=== PATIENT | male | born 1985 | race Caucasian/White ===

== ENCOUNTER → 2016-09-04 07:27 | Day surgery (SDC) | payer BC ==
--- NOTE | 2016-08-28 09:22 | HP ---
ADMITTING HISTORY AND PHYSICAL: DATE OF ADMISSION: 09/04/16 AGE: 31 years, male. 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 PLANNED PROCEDURE: Right radical orchiectomy. SURGEON: Dr. Phipps. HISTORY OF PRESENT ILLNESS: Tip Dorman is a 31-year-old gentleman who had originally noticed enlargement and firmness in the right testicle about 2 months ago. He had [facility] to [facility] and had been treated initially with Cipro and then with Zithromax. There is no history of undescended testicles or testicular trauma. I examined him on and to me, the examination was suspicious for a right testicular neoplasm and an ultrasound was obtained which confirmed large solid neoplasm occupying most of the inside of the right testicle. His serum markers specifically HCG and alpha fetoprotein were normal and he is now being brought in for right radical orchiectomy after a thorough discussion of the diagnosis, procedure, and risks. PAST MEDICAL HISTORY: Unremarkable. PAST SURGICAL HISTORY: Negative. MEDICATIONS ON ADMISSION: None. ALLERGIES: No known drug allergies. SMOKING HISTORY: He is a nonsmoker. PHYSICAL EXAMINATION GENERAL: A pleasant, healthy-appearing young gentleman. VITAL SIGNS: Blood pressure is 120/80, pulse 80 per minute, temperature 97.3, oxygen saturation 96% on room air. LUNGS: Clear bilaterally. CARDIOVASCULAR EXAM: Regular rate and rhythm. S1, S2. ABDOMEN: Soft without any palpable masses. Testicles are descended bilaterally. The left testicle is normal (about 15 to 20 cc in volume) without any masses. On the right side, the right testicle is involved with a firm mass occupying the upper pole and midpole of the testicle on examination and highly suspicious for testicular tumor. An ultrasound was obtained, which revealed hypoechoic irregular mass occupying 90% of the volume of the right testicle with increased intratesticular blood flow. The left testicle was normal on sonography. IMPRESSION: A 31-year-old gentleman with what appears to be a right testicular tumor. Plan is for right radical orchiectomy. I discussed the procedure and possible risks with Tip and the implications and the need for further followup with Medical Oncology and CT scans after the orchiectomy. [id number]/[facility] #: [id number] [facility]
[~2016-09-04 07:27] MED LIST: Buffered Lidocaine 1% SYR 3ML* 3 ML/SYR SYRINGE INTRADERM ONE; Buffered Lidocaine 1% SYR 3ML* 3 ML/SYR SYRINGE ONE; Bupivacaine 0.5% SDV PF* 30 ML VIAL ONE; Collodion (Flexible)* 120 ML BTL ONE; Dexamethasone IV* 4 MG/ML 1 ML (4 MG) ONE; EPHEDrine (Pressors)* 50 MG/ML VIAL ONE; Glycopyrrolate IV* 0.2 MG/ML 1 ML VIAL ONE; Ketorolac INJ* 30 MG/ML 1 ML VIAL ONE; Lidocaine 2% MPF* 2 ML VIAL ONE; Midazolam* 1 MG/ML 2 ML VIAL (2 MG) ONE; Ondansetron INJ* 2 MG/ML VIAL IV PRN; Propofol* 10 MG/ML 20 ML BTL IV PUSH ONE; Sodium Citrate/Citric Acid* 15 ML UDC ONE; Sodium Citrate/Citric Acid* 15 ML UDC PO ONE; cefTRIAXone(*) 2 GM ADDV.VIAL IVPB ONE; fentaNYL* 50 MCG/ML 2 ML VIAL (100 MCG VIAL) IV PRN; fentaNYL* 50 MCG/ML 2 ML VIAL (100 MCG VIAL) ONE; oxyCODONE/Acetamin 5/325 MG* TAB ONE
[2016-09-04 11:16] VITALS: BP 121/58
--- NOTE | 2016-09-05 01:35 | OP ---
DATE OF OPERATION: 09/04/16 - [facility] DATE OF : [birth year] - AGE: 31 years, male. SURGEON: Eliot Phipps MD. VAULT MANAGER: Kilo Manuel MD ANESTHESIOLOGIST: Dr. Sánchez. ANESTHESIA: General. PRE-OP DIAGNOSIS: Right testicular mass. POST-OP DIAGNOSIS: Right testicular mass. OPERATIVE PROCEDURE: Right radical orchiectomy. COMPLICATIONS: None. ESTIMATED BLOOD LOSS: Less than 25 cc. SPECIMEN: Right testicle and spermatic cord. POSTOPERATIVE CONDITION: Stable. INDICATIONS: Tip Dorman is a 31-year-old gentleman who was evaluated and noted to have a firm solid right intratesticular mass. He is being brought in for right radical orchiectomy procedure. DESCRIPTION OF PROCEDURE: After induction of general anesthesia, the patient was placed on the operating table in supine position. The lower abdomen and external genitalia were prepped and draped in the usual sterile fashion. SCDs were on and running. Incision was made in the right inguinal area and the Eunice's fascia was divided in the line of incision. The external oblique was identified and was opened in the line of incision. The ilioinguinal nerve was identified and carefully preserved. The external ring was opened. The cord structures were encircled using a Micha drain and were dissected proximally and distally. Once this was done, the most proximal end of the cord was divided between Martina clamps and the proximal end was secured using 0 chromic suture ligature and 2-0 silk ties. Once the proximal end had been controlled, it was allowed to retract. The gubernacular attachments were then sharply divided and the specimen consisting of the testicle and right spermatic cord was handed off the field. Hemostasis appeared satisfactory. The wound was irrigated, the nerve was inspected and was intact. External oblique was approximated using interrupted sutures of 2-0 Vicryl. Eunice's fascia was approximated using 3-0 chromic and skin was approximated using 4-0 Vicryl running subcuticular sutures. Dry sterile dressings were applied. All sponge and needle counts were correct. The patient tolerated the procedure satisfactorily and was transferred back to the recovery area in stable condition. [id number]/[facility] #: [id number] [facility]
== END | disposition home or self-care (01) ==
LOC: OR 07:27
PROVIDERS: ATTEND Urology
DX: C62.11 Malignant neoplasm of descended right testis (principal)
CPT/HCPCS: 88309; 88341; 88342; A9270-GY; J0696; J1100; J1885; J2250; J2704; J3010